=== PATIENT | male | born 1990 | race Caucasian/White ===

== ENCOUNTER 2017-11-26 06:41 | Emergency (ER) | payer MEDICAID ==
[~2017-11-26] VITALS: Ht 180.3 cm; Wt 97.5 kg
[2017-11-26 06:46] VITALS: BP_SYST 143
[2017-11-26] MEDS ORDERED: NACL 0.9% 1,000 ML IV ONE (06:48)
[2017-11-26 07:19] LABS: BASOPHILS # (AUTO) 0.1 K/uL (0.0-0.2); BASOPHILS % (AUTO) 1.6 % (0.0-2.0); EOSINOPHILS # (AUTO) 0.1 K/uL (0.0-0.4); EOSINOPHILS % (AUTO) 1.1 % (0.0-4.0); HEMATOCRIT 43.3 % (36-54); HEMOGLOBIN 14.7 g/dL (14.0-18.0); LYMPHOCYTES # (AUTO) 1.3 K/uL (1.0-5.5); MEAN CORPUSCULAR HEMOGLOBIN 30 pg (27-31); MEAN CORPUSCULAR HGB CONC 34 % (32-36); MEAN CORPUSCULAR VOLUME 88 fL (79.0-98.0); MONOCYTES # (AUTO) 0.6 K/uL (0.0-1.0); MONOCYTES % (AUTO) 10.4 % (1.7-9.3); NEUTROPHILS # (AUTO) 3.6 K/uL (1.8-7.7); NEUTROPHILS % (AUTO) 64.9 % (40.0-70.0); PLATELET COUNT (AUTO) 210 K/uL (130-430); RED BLOOD CELL COUNT(AUTO) 4.93 MIL/uL (4.2-6.2); RED CELL DISTRIBUTION WIDTH 12.7 % (9.0-15.0); WHITE BLOOD COUNT (AUTO) 5.7 K/uL (4.8-10.8)
[2017-11-26 07:29] LABS: ANION GAP 8 (5-15); CALCIUM 9.1 mg/dL (8.4-11.0); CHLORIDE 106 mmol/L (98-107); CREATININE 0.96 mg/dL (0.55-1.30); GLUCOSE 99 mg/dL (70-99); POTASSIUM 4.3 mmol/L (3.5-5.1); SODIUM SERUM 142 mmol/L (136-145); UREA NITROGEN, BLOOD 21 mg/dL (8-21)
[2017-11-26 07:32] LABS: ALANINE AMINOTRANSFERASE 18 U/L (12-78); AMYLASE 39 U/L (0-100); ASPARTATE AMINOTRANSFERASE 16 U/L (10-37); LIPASE 154 U/L (73-393); TOTAL BILIRUBIN 0.4 mg/dL (0.0-1.0)
[2017-11-26 07:33] LABS: GFR AFRICAN AMERICAN 119 mL/min (>90)
[2017-11-26 07:34] LABS: ALCOHOL, BLOOD < 3 mg/dL (<10)
[2017-11-26 07:48] LABS: BILIRUBIN,URINE NEGATIVE (NEGATIVE); BLOOD, URINE NEGATIVE (NEGATIVE); CLARITY/URINE CLEAR (CLEAR); COLOR,URINE YELLOW (YELLOW); GLUCOSE,URINE NEGATIVE (NEGATIVE); KETONES,URINE NEGATIVE (NEGATIVE); LEUKOCYTE ESTERASE ,URINE NEGATIVE (NEGATIVE); NITRITE, URINE NEGATIVE (NEGATIVE); PROTEIN URINE TRACE (NEGATIVE); UROBILINOGEN,URINE 0.2 (0.2-1.0)
[2017-11-26 07:49] LABS: ACETAMINOPHEN < 1 ug/mL (1-30)
[2017-11-26 08:02] LABS: PROTHROMBIN TIME 10.6 SECS (9.5-12.5)
[2017-11-26 08:08] LABS: BARBITURATE, URINE NEGATIVE (NEG <=200); BENZODIAZEPINE, URINE NEGATIVE (NEG <=150); CANNABINOID, URINE NEGATIVE (NEG <=50); COCAINE, URINE NEGATIVE (NEG <=150); METHAMPHETAMINES SCREEN,URINE POSITIVE (NEG <=500); OPIATE, URINE NEGATIVE (NEG <=100); PHENCYCLIDINE SCREEN,URINE NEGATIVE (NEG <=25); URINE AMPHETAMINE POSITIVE (NEG <=500); URINE METHADONE NEGATIVE (NEG <=200); URINE OXYCODONE SCREEN NEGATIVE (NEG <=100)
[2017-11-26 08:09] LABS: UR TRICYCLIC ANTIDEPRESSANTS NEGATIVE (NEG <=300); URINE PROPOXYPHENE SCREEN NEGATIVE (NEG <=300)
[2017-11-26 08:10] LABS: RBC,URINE 0-3 /HPF (0-3)
[2017-11-26 08:11] LABS: BACTERIA,URINE RARE /HPF (None Seen); MUCUS,URINE 1+ /LPF (None Seen); WBC,URINE 0-3 /HPF (0-3); YEAST,URINE None Seen /HPF (None Seen)
[2017-11-26 08:40] VITALS: BP_SYST 143
== END 2017-11-26 08:40 ==
LOC: SED 06:41
DX: S00.83XA Contusion of other part of head, initial encounter (principal); F15.10 Other stimulant abuse, uncomplicated; W22.8XXA Striking against or struck by other objects, initial encounter; Y93.89 Activity, other specified; Y92.89 Other specified places as the place of occurrence of the external cause; Y99.8 Other external cause status
CPT/HCPCS: 36415; 70450; 71045; 80053; 80307; 81000; 82150; 83690; 85025; 85610; 85730; 93005; 99285; G0480; G0481; G0482; J7030

== ENCOUNTER 2019-06-20 20:37 | Emergency (ER) | payer MEDICAID ==
[~2019-06-20] VITALS: Ht 182.9 cm; Wt 104.3 kg
--- NOTE | 2019-06-20 20:50 | NUR ---
Patient triaged in [address] and placed in [address] chair. VSS and patient appears in no acute distress at this time. Accompanied by , awaiting available bed, and MD notified of need for MSE.
[2019-06-20 20:55] VITALS: BP_SYST 153
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
--- NOTE | 2019-06-20 21:40 | NUR ---
Pt returns to [facility] with [employer] peace officers at side. Pt c/o pain to head, neck, and hands. Dr. Garcia made aware.
[2019-06-20] MEDS ORDERED: ACETAMINOPHEN 500 MG TABLET PO ONE (21:45)
[2019-06-20] MEDS ORDERED: ACETAMINOPHEN 500 MG TABLET ONE (22:00)
--- NOTE | 2019-06-20 22:03 | NUR ---
Patient to ER bed [facility] for [facility]. Side rails up. Report given to Reji SIMS.
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
--- NOTE | 2019-06-20 22:30 | NUR ---
Dry blood to face and BHA cleaned with NS and pat dry with gauge. Bandaids applied to cuts.
--- NOTE | 2019-06-21 00:16 | NUR ---
Pt provided with meal and juice.
--- NOTE | 2019-06-21 04:00 | NUR ---
Dr. Garcia assessing pt.
[2019-06-21 04:30] VITALS: BP_SYST 142
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
--- NOTE | 2019-06-21 04:30 | NUR ---
Patient and peace officers given written and verbal discharge instructions and verbalizes understanding. ER MD discussed with patient the results and treatment provided. Patient in stable condition. ID arm band removed. Patient educated on pain management and to follow up with PMD. Pain Scale 2/10. Opportunity for questions provided and answered. Medication side effect fact sheet provided.
== END 2019-06-21 04:30 ==
LOC: SED 20:37
DX: S06.9X9A Unspecified intracranial injury with loss of consciousness of unspecified duration, initial encounter (principal); Z91.42 Personal history of forced labor or sexual exploitation; W22.8XXA Striking against or struck by other objects, initial encounter; Y93.89 Activity, other specified; Y92.89 Other specified places as the place of occurrence of the external cause; Y99.8 Other external cause status
CPT/HCPCS: 70450-TC; 70486-TC; 72125-TC; 99285

== ENCOUNTER 2021-06-10 15:18 | Emergency (ER) | payer MEDICAID ==
--- NOTE | 2021-06-10 17:00 | NUR ---
[facility] LEFT W/O TRIAGE.
[2021-06-10 17:30] VITALS: BP_SYST 127
== END 2021-06-10 17:00 | disposition left against medical advice (07) ==
LOC: SED 15:18
DX: M20.021 Boutonniere deformity of right finger(s) (principal)
CPT/HCPCS: 99281